=== PATIENT | male | born 1960 | race Caucasian/White ===

== ENCOUNTER 2016-12-28 09:40 | Emergency (ER) | payer MEDICAID ==
[~2016-12-28 09:40] MED LIST: Sodium Chloride 0.9% 1,000 ML IV ONE
[2016-12-28] MEDS ORDERED: Naloxone 0.4 MG/ML SDV ONE ×6 (09:43→11:41)
[2016-12-28] MEDS ORDERED: EPINEPHrine 1:10,000 1 MG/10 ML Syringe ONE ×4 (09:43→11:41)
[2016-12-28] MEDS ORDERED: Sodium Chloride 0.9% 1,000 ML IV ONE (09:45)
[2016-12-28] MEDS ORDERED: Sodium Bicarbonate 8.4% 50 MEQ/50 ML Syringe ONE ×2 (09:48→11:41)
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
== END 2016-12-28 09:58 | disposition expired ==
LOC: VM.ED 09:40
PROC: 0YHJ33Z Insertion of Infusion Device into Left Lower Leg, Percutaneous Approach (ICD-10-PCS; principal; 2016-12-28)
DX: I46.9 Cardiac arrest, cause unspecified (principal); F15.21 Other stimulant dependence, in remission; Z87.891 Personal history of nicotine dependence
CPT/HCPCS: 31500; 36415; 36680; 80047; 84484; 85025; 85379; 85610; 85730; 92950; 96374; 96375; 99291; J0171; J2310; J7030